=== PATIENT | male | born 1975 | race Caucasian/White ===

== ENCOUNTER 2022-11-30 12:10 | Emergency (ER) | payer BC, OTHER ==
[2022-11-30] MEDS ORDERED: HYDROmorphone 0.5 MG/0.5 ML SYRINGE IVP STA ×2 (13:21→15:25)
[2022-11-30] MEDS ORDERED: ONDANSETRON 4 MG/2 ML VIAL IVP STA (13:22)
--- NOTE | 2022-11-30 13:30 | ED ---
Back Pain HPI - General Chief Complaint: Back Pain/Injury Stated Complaint: back pain Time Seen by Provider: 11/30/22 12:40 Source: patient, family, RN notes reviewed Limitations: no limitations - History of Present Illness Initial Comments: 46-year-old male presents with chief complaint of back pain. states that the pain started 2 weeks ago. He went to the chiropractor which he states provided some relief at the time but the pain has increased since then. He went to urgent care following this and was prescribed a Medrol Dosepak and Toradol. He is unable to sit comfortably. The pain initially started in the low back and now radiates into the right lower extremity. Reports the pain is sharp and excruciating. He states that the pain is worse when sitting he gets mild relief with laying on his left side. He states the pain comes and goes. Denies urinary and fecal incontinence, saddle anesthesia. - Related Data Previous Rx's Medication Instructions Recorded HYDROcodone/APAP 5-325MG [[place] 1 tab PO Q6HR PRN 3 Days #12 tab 11/30/22 5-325] Allergies Allergy/AdvReac Type Severity Reaction Status Date / Time No Known Allergies Allergy Verified 11/30/22 12:21 Review of Systems ROS Statement: Those systems with pertinent positive or pertinent negative responses have been documented in the HPI. ROS Other: All systems not noted in ROS Statement are negative. Past Medical History Past Medical History: No Reported History History of Any Multi-Drug Resistant Organisms: None Reported Past Surgical History: Orthopedic Surgery Smoking Status: Never smoker Past Alcohol Use History: Occasional Past Drug Use History: None Reported General Exam Limitations: no limitations General appearance: alert Head exam: Present: atraumatic, normocephalic, normal inspection Neck exam: Present: normal inspection. Absent: tenderness, meningismus, lymphadenopathy Respiratory exam: Present: normal lung sounds bilaterally. Absent: respiratory distress, wheezes, rales, rhonchi, stridor Cardiovascular Exam: Present: normal rhythm, tachycardia, normal heart sounds. Absent: systolic murmur, diastolic murmur, rubs, gallop, clicks GI/Abdominal exam: Present: soft, normal bowel sounds. Absent: distended, tenderness, guarding, rebound, rigid Extremities exam: Present: normal inspection, full ROM, tenderness (TTP of left lower extremity and hip), normal capillary refill. Absent: pedal edema, joint swelling, calf tenderness Back exam: Present: normal inspection. Absent: full ROM Neurological exam: Present: alert, oriented X3, CN II-XII intact Course Vital Signs 11/30/22 11/30/22 12:21 15:37 Temperature 97.3 F L 97.7 F Pulse Rate 126 H 52 L Respiratory 16 17 Rate Blood Pressure 146/91 128/84 O2 Sat by Pulse 100 95 Oximetry Medical Decision Making - Medical Decision Making Was pt. sent in by a medical professional or institution (SONDRA Goldman, [employer]ACHINE [employer]JUST[employer], urgent care, hospital, or longterm...) When possible be specific @ -No Did you speak to anyone other than the patient for history (EMS, parent, family, police, friend...)? What history was obtained from this source @ -No Did you review nursing and triage notes (agree or disagree)? Why? @ -I reviewed and agree with nursing and triage notes Were old charts reviewed (outside hosp., previous admission, EMS record, old EKG, old radiological studies, urgent care reports/EKG's, longterm records)? Report findings @ -No old charts were reviewed Differential Diagnosis (chest pain, altered mental status, abdominal pain women, abdominal pain men, vaginal bleeding, weakness, fever, dyspnea, syncope, headache, dizziness, GI bleed, back pain, seizure, CVA, palpatations, mental health, musculoskeletal)? @ -Herniated disc, muscle spasm, fracture EKG interpreted by me (3pts min.). @ -None X-rays interpreted by me (1pt min.). @ -None done CT interpreted by me (1pt min.). @ -CT lumbar spine showed large extruded and sequestered right-sided disc fragment line posterior to the L5 vertebral segment severely, redness in the right L4-5 lateral recess U/S interpreted by me (1pt. min.). @ -None done What testing was considered but not performed or refused? (CT, X-rays, U/S, labs)? Why? @ -None What meds were considered but not given or refused? Why? @ -None Did you discuss the management of the patient with other professionals (professionals i.e. SONDRA Goldman, EN[employer] MACHINE ADJUSTER, lab, RT, psych nurse, psych social worker, table cover folder, teacher, debt recovery officer, case checker)? Give summary @ -Discussed case with on-call orthopedics, will follow up as outpatient, recommended pain control, return for new or worsening symptoms Was smoking cessation discussed for >3mins.? @ -No Was critical care preformed (if so, how long)? @ -No Were there social determinants of health that impacted care today? How? (Homelessness, low income, unemployed, alcoholism, drug addiction, transportation, low edu. Level, literacy, decrease access to med. care, penitentiary, rehab)? @ -No Was there de-escalation of care discussed even if they declined (Discuss DNR or withdrawal of care, Hospice)? DNR status @ -No What co-morbidities impacted this encounter? (DM, HTN, Smoking, COPD, CAD, Cancer, CVA, ARF, Chemo, Hep., AIDS, mental health diagnosis, sleep apnea, morbid obesity)? @ -None Was patient admitted / discharged? Hospital course, mention meds given and route, prescriptions, significant lab abnormalities, going to OR and other pertinent info. @ -[Discharged. Patient presented with 2 weeks of back pain that is progressively worsening and radiating down his right leg. CT lumbar spine was performed which showed extruded and sequestered right-sided disc fragment line posterior to the L5 vertebral segment severely compromising right L4-5 lateral recess, pain control obtained with Dilaudid. Patient discharged in stable condition. Undiagnosed new problem with uncertain prognosis? @ -No Drug Therapy requiring intensive monitoring for toxicity (Heparin, Nitro, Insulin, Cardizem)? @ -No Were any procedures done? @ -No Diagnosis/symptom? @ -[Herniated disc with radiculopathy Acute, or Chronic, or Acute on Chronic? @ -Acute Uncomplicated (without systemic symptoms) or Complicated (systemic symptoms)? @ -[Uncomplicated Side effects of treatment? @ -No Exacerbation, Progression, or Severe Exacerbation? @ -No Poses a threat to life or bodily function? How? (Chest pain, [place], [place], pneumonia, PE, COPD, DKA, ARF, appy, cholecystitis, CVA, Diverticulitis, Homicidal, Suicidal, threat to staff... and all critical care pts) @ -No Disposition Clinical Impression: Lumbar disc herniation with radiculopathy Disposition: HOME SELF-CARE Condition: Stable Instructions (If sedation given, give patient instructions): Acute Low Back Pain (ED) Additional Instructions: Please return to the Emergency Department if symptoms worsen or any other concerns. Prescriptions: HYDROcodone/APAP 5-325MG [[place] 5-325] 1 tab PO Q6HR PRN 3 Days #12 tab PRN Reason: Pain Is patient prescribed a controlled substance at d/c from ED?: Yes When asked, does pt state using other controlled substances?: No If prescribed controlled substance>3 days was MAPS reviewed?: Prescribed <3 Days If opioid is for acute pain is fill amount 7 days or less?: Yes If Rx opioid, was Start Talking consent form obtained?: Yes Referrals: James Hand DO [Primary Care Provider] - 1-2 days Jax De Leon DO [Doctor of Osteopathic Medicine] - 1-2 days Time of Disposition: 16:32
--- NOTE | 2022-11-30 14:12 | CT ---
EXAMINATION TYPE: CT lumbar spine wo con DATE OF EXAM: 11/30/2022 1:53 PM COMPARISON: HISTORY: BACK PAIN CT DLP: 1026.3 mGycm Automated exposure control for dose reduction was used. Unenhanced CT of the lumbar spine was performed. Bone and soft tissue window settings are submitted as well as coronal and sagittal reconstructions. Findings: The lumbar vertebral segments are normal in height and alignment and there is no fracture or subluxat ion. The disc spaces are well-maintained in height and there is no significant degenerative disc disease. There is an extruded disc fragment lying posterior to the L5 vertebral segment on the right resulting in significant mass effect on the right anterolateral aspect of the thecal sac and compromising the right lateral recess. It is indeterminate as to whether it arises from the L4-5 disc L5-S1 disc. Facet joints are intact. The paraspinal soft tissues are unremarkable. IMPRESSION: Large extruded and sequestered right-sided disc fragment lying posterior to the L5 vertebral segment severely compromising the right L4-5 lateral recess as described above. No other significant abnormal ity seen.
[2022-11-30] MEDS ORDERED: methylPREDNISolone SOD SUCCI 125 MG/2 ML VIAL IV STA (14:14)
[2022-11-30] MEDS ORDERED: ORPHENADRINE 30 MG/ML 2 ML VIAL IVP STA (14:15)
[2022-11-30 15:37] VITALS: BP 128/84; PULSE 52; RESP 17; TEMP 97.7
--- NOTE | 2022-11-30 16:43 | ED ---
Medical Decision Making - Medical Decision Making This is addendum to change discharged follow-up to Dr. Whitaker Disposition Clinical Impression: Lumbar disc herniation with radiculopathy Disposition: HOME SELF-CARE Condition: Stable Instructions (If sedation given, give patient instructions): Acute Low Back Pain (ED) Additional Instructions: Please return to the Emergency Department if symptoms worsen or any other concerns. Prescriptions: HYDROcodone/APAP 5-325MG [[place] 5-325] 1 tab PO Q6HR PRN 3 Days #12 tab PRN Reason: Pain Is patient prescribed a controlled substance at d/c from ED?: No Referrals: James Hand DO [Primary Care Provider] - 1-2 days Jax De Leon DO [Doctor of Osteopathic Medicine] - 1-2 days Varsha Whitaker DO [Doctor of Osteopathic Medicine] - 1-2 days
== END 2022-11-30 16:55 | disposition home or self-care (01) ==
LOC: EC 12:10
DX: M51.16 Intervertebral disc disorders with radiculopathy, lumbar region (principal); X58.XXXA Exposure to other specified factors, initial encounter
CPT/HCPCS: 72131; 99284; 96374; 96375 ×3; 96376; J2360; J2930; J2405; J1170